=== PATIENT | male | born 1955 | race Caucasian/White ===

== ENCOUNTER 2016-08-28 06:44 | Emergency (ER) | payer OTHER, BC ==
[2016-08-28] MEDS ORDERED: SODIUM CHLORIDE 0.9% 1,000 ML IV STA (08:06)
[2016-08-28 08:15] LABS: Basophils % (A) 1 %; CHCM 34.5; Eosinophils # (A) 0.2 k/uL (0-0.7); Eosinophils % (A) 3 %; HDW 2.78; HGB 15.2 gm/dL (13.0-17.5); Luc # (Auto) 0.12; Luc % (Auto) 2; Lymphocytes # (A) 0.8 k/uL (1.0-4.8); Lymphocytes % (A) 12 %; MCH 31.7 pg (25.0-35.0); MCV 96.2 fL (80.0-100.0); Mean Platelet Volume 7.2; Monocytes # (A) 0.3 k/uL (0-1.0); Monocytes % (A) 5 %; Neutrophils # (A) 5.2 k/uL (1.3-7.7); Neutrophils % (A) 78 %; RBC 4.78 m/uL (4.30-5.90); RDW 12.8 % (11.5-15.5); WBC 6.7 k/uL (3.8-10.6); WBC (Perox) 6.87
--- NOTE | 2016-08-28 08:20 | ED ---
Abdominal Pain HPI - General Chief Complaint: Abdominal Pain Stated Complaint: back pain Time Seen by Provider: 08/28/16 07:58 Source: patient Mode of arrival: ambulatory Limitations: no limitations - History of Present Illness Initial Comments: 61-year-old male patient presents to emergency department today for complaints of left flank pain. Patient states that this pain started suddenly around 3:00 this morning. Patient states the pain was constant and lasted until he was here in emergency around 0730. Patient states he still has some pain to the area when he takes a deep breath. Patient states the pain is difficult to describe. With the pain the patient did have some nausea, dry heaves, and cold sweats. Patient denies any fever or chills. Patient denies any vomiting, constipation, diarrhea, urinary retention, hematuria, dysuria, urinary urgency, urinary frequency. She denies any chest pain, dizziness, shortness of breath, or weakness. He does have a history of kidney stones. Patient reports dark urine. - Related Data Home Medications Medication Instructions Recorded Confirmed Ezetimibe/Simvastatin [Vytorin 1 tab PO DAILY 08/28/16 08/28/16 10-20 mg Tablet] [place] Carbonate 300 mg PO BID 08/28/16 08/28/16 Previous Rx's Medication Instructions Recorded Hydrocodone/Acetaminophen [[place] 1 tab PO Q6HR PRN #15 tab 08/28/16 5-325] Ibuprofen [Motrin] 600 mg PO Q8HR PRN #30 tab 08/28/16 Ondansetron Odt [Zofran Odt] 4 mg PO Q8HR PRN #10 tab 08/28/16 Tamsulosin [Flomax] 0.4 mg PO DAILY #7 cap 08/28/16 Allergies Allergy/AdvReac Type Severity Reaction Status Date / Time No Known Allergies Allergy Verified 08/28/16 07:00 Review of Systems ROS Statement: Those systems with pertinent positive or pertinent negative responses have been documented in the HPI. ROS Other: All systems not noted in ROS Statement are negative. Past Medical History Past Medical History: No Reported History History of Any Multi-Drug Resistant Organisms: None Reported Past Surgical History: Orthopedic Surgery Additional Past Surgical History / Comment(s): Knee replacement Past Psychological History: No Psychological Hx Reported Smoking Status: Former smoker Past Alcohol Use History: Occasional Past Drug Use History: None Reported General Exam Limitations: no limitations General appearance: alert, in no apparent distress Eye exam: Present: normal appearance, PERRL, EOMI. Absent: scleral icterus, conjunctival injection, periorbital swelling ENT exam: Present: normal exam, normal oropharynx, mucous membranes moist Neck exam: Present: normal inspection. Absent: tenderness, meningismus, lymphadenopathy Respiratory exam: Present: normal lung sounds bilaterally. Absent: respiratory distress, wheezes, rales, rhonchi, stridor Cardiovascular Exam: Present: regular rate, normal rhythm, normal heart sounds. Absent: systolic murmur, diastolic murmur, rubs, gallop, clicks GI/Abdominal exam: Present: soft, normal bowel sounds. Absent: distended, tenderness, guarding, rebound, rigid Extremities exam: Present: normal inspection, full ROM, normal capillary refill. Absent: tenderness, pedal edema, joint swelling, calf tenderness Back exam: Present: normal inspection, CVA tenderness (L). Absent: CVA tenderness (R) Neurological exam: Present: alert, oriented X3, CN II-XII intact Psychiatric exam: Present: normal affect, normal mood Skin exam: Present: warm, dry, intact, normal color. Absent: rash Course Vital Signs 08/28/16 06:56 Temperature 97.2 F L Pulse Rate 58 L Respiratory 18 Rate Blood Pressure 158/83 O2 Sat by Pulse 95 Oximetry Medical Decision Making - Medical Decision Making 61-year-old male patient presented to emergency department today for complaints of left flank pain. Patient states pain started around 0300, and persisted until he arrived then symptoms subsided. Lab work was unremarkable. Urinalysis revealed large amount of blood. Patient's symptoms remain improved. Patient was given 1 L bolus. Symptoms and urine are consistent with kidney stone. Since patient does have a history of kidney stone we will hold off on CT at this time. Patient will be discharged home with prescription for Flomax, pain medication, nausea medication, and instructions to return with any new, worsening, or concerning symptoms. Patient discharged follow-up with urology. Patient verbalizes understanding and agrees this plan. - Lab Data Result diagrams: 08/28/16 07:36 08/28/16 07:36 Lab Results 08/28/16 08/28/16 08/28/16 Range/Units 07:36 07:36 07:36 WBC 6.7 (3.8-10.6) k/uL RBC 4.78 (4.30-5.90) m/uL Hgb 15.2 (13.0-17.5) gm/dL Hct 46.0 (39.0-53.0) % MCV 96.2 (80.0-100.0) fL MCH 31.7 (25.0-35.0) pg MCHC 33.0 (31.0-37.0) g/dL RDW 12.8 (11.5-15.5) % Plt Count 184 (150-450) k/uL Neutrophils % 78 % Lymphocytes % 12 % Monocytes % 5 % Eosinophils % 3 % Basophils % 1 % Neutrophils # 5.2 (1.3-7.7) k/uL Lymphocytes # 0.8 L (1.0-4.8) k/uL Monocytes # 0.3 (0-1.0) k/uL Eosinophils # 0.2 (0-0.7) k/uL Basophils # 0.0 (0-0.2) k/uL Sodium 143 (137-145) mmol/L Potassium 4.7 (3.5-5.1) mmol/L Chloride 108 H (98-107) mmol/L Carbon Dioxide 24 (22-30) mmol/L Anion Gap 11 mmol/L BUN 16 (9-20) mg/dL Creatinine 0.94 (0.66-1.25) mg/dL Est GFR (MDRD) Af Amer >60 (>60 ml/min/1.73 sqM) Est GFR (MDRD) Non-Af >60 (>60 ml/min/1.73 sqM) Glucose 115 H (74-99) mg/dL Calcium 10.0 (8.4-10.2) mg/dL Total Bilirubin 1.0 (0.2-1.3) mg/dL AST 39 (17-59) U/L ALT 54 (21-72) U/L Alkaline Phosphatase 54 (38-126) U/L Total Protein 7.2 (6.3-8.2) g/dL Albumin 4.5 (3.5-5.0) g/dL Amylase 52 (30-110) U/L Lipase 311 H (23-300) U/L Urine Color Yellow Urine Appearance Clear (Clear) Urine pH 6.0 (5.0-8.0) Ur Specific [place] 1.023 (1.001-1.035) Urine Protein Trace H (Negative) Urine Glucose (UA) Negative (Negative) Urine Ketones Negative (Negative) Urine Blood Large H (Negative) Urine Nitrite Negative (Negative) Urine Bilirubin Negative (Negative) Urine Urobilinogen <2.0 (<2.0) mg/dL Ur Leukocyte Esterase Negative (Negative) Urine RBC >182 H (0-5) /hpf Urine WBC 3 (0-5) /hpf Ur Squamous Epith Cells <1 (0-4) /hpf Hyaline Casts 5 H (0-2) /lpf Urine Mucus Few H (None) /hpf - EKG Data -: EKG Interpreted by Me 08/28/16 08:27 EKG obtained at 0813 reveals sinus rhythm with first-degree AV block, nonspecific intraventricular conduction delay, ventricular rate 67 IA interval 220, QRS duration 118, QTC 460, QTC 439. No evidence of ST elevation or depression - Radiology Data Radiology results: image reviewed X-ray KUB reveals Overall nonobstructive bowel gas pattern. Disposition Clinical Impression: Kidney stone on left side Disposition: HOME SELF-CARE Condition: Good Instructions: Kidney Stones (ED) Additional Instructions: Return for any urinary retention, uncontrolled pain, or any other new, worsening , or concerning symptoms. Follow-up with urology. Prescriptions: Hydrocodone/Acetaminophen [[place] 5-325] 1 tab PO Q6HR PRN #15 tab PRN Reason: Pain Ibuprofen [Motrin] 600 mg PO Q8HR PRN #30 tab PRN Reason: Pain Ondansetron Odt [Zofran Odt] 4 mg PO Q8HR PRN #10 tab PRN Reason: Nausea Tamsulosin [Flomax] 0.4 mg PO DAILY #7 cap Referrals: Dwayne Francisco DO [Primary Care Provider] - 1-2 days Trell Valdes MD [STAFF PHYSICIAN] - 1-2 days Time of Disposition: 08:46
[2016-08-28 08:24] LABS: ALT 54 U/L (21-72); AST 39 U/L (17-59); Alkaline Phosphatase 54 U/L (38-126); Amylase 52 U/L (30-110); Anion Gap 11 mmol/L; Blood Urea Nitrogen 16 mg/dL (9-20); Carbon Dioxide 24 mmol/L (22-30); Chloride 108 mmol/L (98-107); Glucose 115 mg/dL (74-99); Non-African American GFR(MDRD) >60 (>60 ml/min/1.73 sqM); Potassium 4.7 mmol/L (3.5-5.1); Sodium 143 mmol/L (137-145); Total Protein 7.2 g/dL (6.3-8.2)
[2016-08-28 08:26] LABS: Appearance,Urine Clear (Clear); Bilirubin,Urine Negative (Negative); Glucose,Urine (UA) Negative (Negative); Ketones,Urine Negative (Negative); Leukocyte Esterase,Urine Negative (Negative); Mucus,Urine Few /hpf; Nitrite,Urine Negative (Negative); Particle Count 5477; Protein,Urine Trace (Negative); RBC,Urine >182 /hpf (0-5); Specific Gravity,Urine 1.023 (1.001-1.035); Squamous Epithelial Cell,Urine <1 /hpf (0-4); UA Billing (MACRO vs. MICRO) MICRO; Urobilinogen,Urine <2.0 mg/dL (<2.0); WBC,Urine 3 /hpf (0-5)
--- NOTE | 2016-08-28 08:40 | XR ---
EXAMINATION TYPE: XR KUB DATE OF EXAM: 08/28/2016 8:36 AM COMPARISON: NONE HISTORY: Left lower quadrant pain TECHNIQUE: One view abdominal series FINDINGS: The osseous structures are intact. The bowel gas pattern is nonspecific. Surgical clips overlying th e left inguinal region seen. Tiny calcification in the right pelvis measuring 2 mm is nonspecific IMPRESSION: 1. Nonspecific abdomen. Correlate with CT as clinically warranted.
[2016-08-28] MEDS ORDERED: ONDANSETRON 4 MG/2 ML VIAL IVP STA (08:51)
[2016-08-28] MEDS ORDERED: HYDROmorphone 1 MG/ML 1 ML SYRINGE IVP STA (08:51)
[2016-08-28] MEDS ORDERED: KETOROLAC 30 MG/ML 1 ML VIAL IVP STA (08:51)
[2016-08-28 09:07] VITALS: BP 146/76; PULSE 71; RESP 14; TEMP 97.3
== END 2016-08-28 09:08 | disposition home or self-care (01) ==
LOC: EC 06:44
DX: N20.0 Calculus of kidney (principal); Z87.442 Personal history of urinary calculi; Z79.899 Other long term (current) drug therapy; Z87.891 Personal history of nicotine dependence
CPT/HCPCS: 36415; 93005; 80053; 82150; 83690; 85025; 81001; 87086; 74000; 99284; 96374; 96375; 96361; J2405; J1885; J1170